=== PATIENT | female | born 1995 | race Caucasian/White ===

== ENCOUNTER 2016-08-21 10:00 | Emergency (ER) | payer BC, OTHER ==
--- NOTE | ~2016-08-21 | CR63 ---
[facility] A Service of [facility] & [facility] RADIOLOGY TEXT RESULTS PATIENT: ANDREY COLE LOCATION: SED : [birth year] UNIT #: [id number] AGE: [address]: Messi Burciaga MD SEX: F ORDER DR: [id number] [place] [id number] E MR#: [id number] Acc #: [id number] NAME: ANDREY COLE. : 1995 SEX: F STUDY DATE/TIME: 08/21/2016 11:23 UNIT: SED ROOM: STUDY DESCRIPTION: CR Chest 2 View Attending Physician: Messi Burciaga M.D. Ordering Physician: Messi Burciaga M.D. Primary Care Physician: Jeni Navarro M.D. MEDICAL IMAGING REPORT This report is preliminary unless electronic signature is present. EXAM PA and lateral chest radiograph. INDICATION Cough and sore throat for 1 week. FINDINGS PA and lateral examination of the chest upright shows a good expansion of the parenchyma with a normal distribution of the pulmonary vascularity. There is no indication of congestion, effusion, infiltrate, tumor, or nodular density. The pleural reflections and diaphragmatic contours are normal. The cardiac silhouette and mediastinal anatomy is within normal limits. IMPRESSION Negative/normal PA and lateral chest. Dictated by... Belkis Gonzalez M.D. THIS IS AN ELECTRONICALLY VERIFIED REPORT Belkis Gonzalez M.D. at 08/22/2016 10:50 AM AFF/jfrances TD: 08/21/2016 16:14 JOB #: [id number] MEDICAL IMAGING REPORT Page 1 of 1
[~2016-08-21 10:00] MED LIST: ACETAMINOPHEN PO; ACULAR10 ML OU; ALBUTEROL17 GM INH; ALLERGY MED; BENZONATATE PO; NO MEDICATIONS; POLYTRIM O10 ML OPTH OU; VICODIN 5/1 TAB 5/50 PO; ZOFRAN ODT4 MG PO
== END 2016-08-21 12:26 | disposition home or self-care (01) ==
LOC: SED 10:00
DX: J20.9 Acute bronchitis, unspecified (principal); Z91.040 Latex allergy status
CPT/HCPCS: 71020; 94640; 99283

== ENCOUNTER 2016-09-12 23:30 | Emergency (ER) | payer BC ==
[2016-09-12] MEDS ORDERED: ALBUTEROL17 GM PO (23:39)
== END 2016-09-13 00:40 | disposition home or self-care (01) ==
LOC: SED 23:30
DX: J40 Bronchitis, not specified as acute or chronic (principal); J30.2 Other seasonal allergic rhinitis; Z91.040 Latex allergy status
CPT/HCPCS: 94640; 99283